=== PATIENT | male | born 1995 | race Caucasian/White ===

== ENCOUNTER 2018-09-13 14:44 | Emergency (ER) | payer SELFPAY ==
[~2018-09-13] VITALS: Ht 172.7 cm; Wt 70.0 kg
[2018-09-13 21:15] VITALS: BP 136/92
[2018-09-13] MEDS ORDERED: IBUPROFEN 600MG TABLET PO ONE (21:15)
== END 2018-09-14 00:41 | disposition home or self-care (01) ==
LOC: ER 14:44
DX: M25.562 Pain in left knee (principal); M79.10 Myalgia, unspecified site; Z59.0 Homelessness
CPT/HCPCS: 73562; 93971; 99284